=== PATIENT | male | born 1955 | race Caucasian/White ===

== ENCOUNTER 2025-03-19 10:08 | Emergency (ER) | payer MEDICARE, OTHER ==
[~2025-03-19] VITALS: Ht 193 cm; Wt 113.6 kg
[2025-03-19 10:16] VITALS: TEMP 97.3
[2025-03-19] MEDS ORDERED: LEVO125 PO (10:23)
[2025-03-19] MEDS: BACITRACIN 28 GM OINTMENT TP ONE (10:54)
[2025-03-19] MEDS: LIDOCAINE 1%/EPI 1:200,000/PF 10 ML VIAL SQ ONE (10:54)
[2025-03-19 11:46] VITALS: BP 136/88; PULSE 76; RESP 16; O2SAT 99
== END 2025-03-19 12:25 | disposition home or self-care (01) ==
LOC: EMS 10:08
DX: S61.412A Laceration without foreign body of left hand, initial encounter (principal); Z90.89 Acquired absence of other organs; Z85.9 Personal history of malignant neoplasm, unspecified; Z79.899 Other long term (current) drug therapy; X58.XXXA Exposure to other specified factors, initial encounter; Y93.89 Activity, other specified; Y92.89 Other specified places as the place of occurrence of the external cause; Y99.8 Other external cause status
CPT/HCPCS: 99282; 12002; J3490